=== PATIENT | male | born 1975 | race Caucasian/White ===

== ENCOUNTER 2019-06-23 17:50 | Emergency (ER) | payer SELFPAY ==
[~2019-06-23] VITALS: Ht 177.8 cm; Wt 71.4 kg
[~2019-06-23 17:50] MED LIST: NO HOME MEDICATIONS
[2019-06-23 18:10] VITALS: BP 135/90
[2019-06-23] MEDS ORDERED: OMNICEF 300MG300 MG PO (20:09)
[2019-06-23 20:34] VITALS: PULSE 79; TEMP 98
== END 2019-06-23 20:36 | disposition home or self-care (01) ==
LOC: COL.ER 17:50
DX: S61.111A Laceration without foreign body of right thumb with damage to nail, initial encounter (principal); W26.8XXA Contact with other sharp object(s), not elsewhere classified, initial encounter; Y92.009 Unspecified place in unspecified non-institutional (private) residence as the place of occurrence of the external cause

== ENCOUNTER 2020-05-11 18:27 | Emergency (ER) | payer BC ==
[~2020-05-11] VITALS: Ht 177.8 cm; Wt 72.7 kg
[~2020-05-11 18:27] MED LIST changes: +OMNICEF 300MG300 MG PO
[2020-05-11 18:38] VITALS: BP 171/95
[2020-05-11 20:48] VITALS: PULSE 96; TEMP 98.9
== END 2020-05-11 20:49 | disposition home or self-care (01) ==
LOC: COL.ER 18:27
DX: U07.1 COVID-19 (principal); Z88.0 Allergy status to penicillin; Z88.8 Allergy status to other drugs, medicaments and biological substances; Z79.2 Long term (current) use of antibiotics